=== PATIENT | female | born 1985 | race Hispanic/Latino ===

== ENCOUNTER 2018-11-30 09:14 | Emergency (ER) | payer SELFPAY ==
[~2018-11-30] VITALS: Ht 154.9 cm; Wt 54.4 kg
== END 2018-11-30 10:26 | disposition short-term general hospital (02) ==
LOC: FSED 09:14
DX: J02.9 Acute pharyngitis, unspecified (principal)

== ENCOUNTER 2022-12-21 13:00 | Emergency (ER) | payer SELFPAY ==
[~2022-12-21] VITALS: Ht 162.6 cm; Wt 65.0 kg
== END 2022-12-21 15:04 | disposition home or self-care (01) ==
LOC: FSED 13:06
DX: O20.0 Threatened abortion (principal)
CPT/HCPCS: 36415; 76801; 81003; 81025; 84702; 99283